=== PATIENT | female | born 1995 | race Caucasian/White ===

== ENCOUNTER 2018-01-26 15:04 | Emergency (ER) | payer BC ==
[2018-01-26 16:08] VITALS: BP 135/79
--- NOTE | 2018-01-26 16:42 | UC ---
Hand/Wrist HPI - HPI Summary HPI Summary: 22 yo female injured right thumb three days ago in fall hyperextended it Right handed no is clicking when she uses it - History Of Current Complaint Chief Complaint: UCUpperExtremity Stated Complaint: RT THUMB INJURY Time Seen by Provider: 01/26/18 16:16 Hx Obtained From: Patient Hx Last Menstrual Period: 12/28/17 Onset/Duration: Sudden Onset, Lasting Days Severity Initially: Moderate Severity Currently: Moderate Pain Intensity: 7 Pain Scale Used: 0-10 Numeric Character Of Pain: Aching, Throbbing, Spasmodic Aggravating Factor(s): Movement Alleviating Factor(s): Rest Associated Signs And Symptoms: Positive: Swelling Related History: Dominant Hand Right - Allergies/Home Medications Allergies/Adverse Reactions: Allergies Allergy/AdvReac Type Severity Reaction Status Date / Time No Known Allergies Allergy Verified 01/26/18 15:51 Home Medications: Home Medications Acetaminophen [Tylophen] 500 mg PO Q6H 01/26/18 [History Confirmed 01/26/18] PMH/Surg Hx/FS Hx/Imm Hx Previously Healthy: Yes - Surgical History Surgical History: Yes Surgery Procedure, Year, and Place: [place] teeth. Bladder INFLATION - Family History Known Family History: Positive: None - Social History Alcohol Use: Occasionally Substance Use Type: None Smoking Status (MU): Light Every Day Tobacco Smoker Type: Cigarettes Amount Used/How Often: 3 CIG PER DAY Have You Smoked in the Last Year: Yes Review of Systems Constitutional: Negative Skin: Negative Eyes: Negative ENT: Negative Respiratory: Negative Cardiovascular: Negative Gastrointestinal: Negative Genitourinary: Negative Motor: Negative Neurovascular: Negative Musculoskeletal: Arthralgia Neurological: Negative Psychological: Negative Is Patient Immunocompromised?: No All Other Systems Reviewed And Are Negative: Yes Physical Exam Triage Information Reviewed: Yes Appearance: Well-Appearing, No Pain Distress, Well-Nourished Vital Signs: Initial Vital Signs Temp 98.7 F 01/26/18 15:50 Pulse 78 01/26/18 15:50 Resp 18 01/26/18 15:50 BP 135/79 01/26/18 15:50 Pulse Ox 99 01/26/18 15:50 Vital Signs Reviewed: Yes Eyes: Positive: Conjunctiva Clear ENT: Positive: Normal ENT inspection. Negative: Pharyngeal erythema, Nasal drainage, TMs normal, Trismus, Muffled voice, Hoarse voice Neck: Positive: Supple Respiratory: Positive: Lungs clear, Normal breath sounds, No respiratory distress, No accessory muscle use Cardiovascular: Positive: RRR, No Murmur Musculoskeletal: Positive: Other: - see imaging Neurological: Positive: Alert Psychological Exam: Normal Skin Exam: Normal Diagnostics - Radiology No standard instances Xray Interpretation: No Acute Changes - except STS Radiology Interpretation Completed By: Radiologist Hand/Wrist Course/Dx - Course Course Of Treatment: [facility] [place] (-) - Differential Dx/Diagnosis Provider Diagnoses: right thumb sprain Discharge - Sign-Out/Discharge Documenting (check all that apply): Discharge - Discharge Plan Condition: Stable Disposition: HOME Patient Education Materials: Skier's Thumb (ED) Referrals: Hero Wagoner MD [Medical Doctor] - As Soon As Possible Additional Instructions: no fracture thumb spica splint ice elevation aleve 1-2 twice daily with food - Billing Disposition and Condition Condition: STABLE Disposition: HOME Images Hands: 1 - tender/swollen, FROM, no snuff box tenderness
--- NOTE | 2018-01-26 17:08 | RAD ---
INDICATION: Right thumb injury. TECHNIQUE: 3 views of the right thumb were obtained. FINDINGS: There is soft tissue swelling at the metacarpal phalangeal joint. The bones are normal alignment. No fracture is seen Joint spaces appear maintained. IMPRESSION: SOFT TISSUE SWELLING, NO FRACTURE IS SEEN.
== END 2018-01-26 17:20 | disposition home or self-care (01) ==
LOC: UCCORT 15:04
DX: S63.601A Unspecified sprain of right thumb, initial encounter (principal); F17.210 Nicotine dependence, cigarettes, uncomplicated; W19.XXXA Unspecified fall, initial encounter; Y92.9 Unspecified place or not applicable; Z32.02 Encounter for pregnancy test, result negative
CPT/HCPCS: 84702; 99212; G0463

== ENCOUNTER 2018-07-17 07:44 | Emergency (ER) | payer BC ==
[2018-07-17 08:02] VITALS: BP 134/90
--- NOTE | 2018-07-17 08:13 | ED ---
Throat Pain/Nasal Congestion - HPI Summary HPI Summary: sore throat for the last 12 hours, having trouble swallowing - History of Current Complaint Chief Complaint: UCRespiratory Time Seen by Provider: 07/17/18 08:08 Hx Obtained From: Patient Onset/Duration: Sudden Onset Severity: Moderate - Epiglottits Risk Factors Epiglottis Risk Factors: Negative - Allergies/Home Medications Allergies/Adverse Reactions: Allergies Allergy/AdvReac Type Severity Reaction Status Date / Time No Known Allergies Allergy Verified 07/17/18 07:56 Home Medications: Home Medications NK [No Home Medications Reported] 07/17/18 [History Confirmed 07/17/18] PMH/Surg Hx/FS Hx/Imm Hx Previously Healthy: Yes - Surgical History Surgery Procedure, Year, and Place: [place] teeth. Bladder INFLATION Infectious Disease History: No Infectious Disease History: Denies: Traveled Outside the [place] in Last 30 Days - Family History Known Family History: Positive: None - Social History Alcohol Use: Occasionally Substance Use Type: Reports: None Smoking Status (MU): Light Every Day Tobacco Smoker Type: Cigarettes Amount Used/How Often: 3 CIG PER DAY Have You Smoked in the Last Year: Yes Review of Systems Constitutional: Negative Eyes: Negative ENT: Negative Cardiovascular: Negative Respiratory: Negative Gastrointestinal: Negative Genitourinary: Negative Musculoskeletal: Negative Skin: Negative Neurological: Negative Psychological: Normal All Other Systems Reviewed And Are Negative: Yes Physical Exam Triage Information Reviewed: Yes Vital Signs On Initial Exam: Initial Vitals Temp Pulse Resp BP Pulse Ox 37.5 C 85 16 134/90 99 07/17/18 07:57 07/17/18 07:57 07/17/18 07:57 07/17/18 07:57 07/17/18 07:57 Vital Signs Reviewed: Yes Appearance: Positive: Well-Appearing Skin: Positive: Warm, Dry Head/Face: Positive: Normal Head/Face Inspection Eyes: Positive: Normal ENT: Positive: Pharyngeal erythema Neck: Positive: Supple Respiratory/Lung Sounds: Positive: Clear to Auscultation Cardiovascular: Positive: Normal Abdomen Description: Positive: Nontender Diagnostics - Vital Signs Vital Signs Temp Pulse Resp BP Pulse Ox 07/17/18 07:57 37.5 C 85 16 134/90 99 - Laboratory Lab Statement: Any lab studies that have been ordered have been reviewed, and results considered in the medical decision making process. EENT Course/Dx - Diagnoses Provider Diagnoses: Pharyngitis Is Visit Related: No Discharge - Sign-Out/Discharge Documenting (check all that apply): Patient Departure All imaging exams completed and their final reports reviewed: Yes - Discharge Plan Condition: Good Disposition: HOME Patient Education Materials: Pharyngitis (ED) Referrals: Ilan Jaimes [Primary Care Provider] - - Billing Disposition and Condition Condition: GOOD Disposition: Home
== END 2018-07-17 08:25 | disposition home or self-care (01) ==
LOC: UCCORT 07:44
DX: J02.9 Acute pharyngitis, unspecified (principal); F17.210 Nicotine dependence, cigarettes, uncomplicated
CPT/HCPCS: 87651; 99212; G0463